=== PATIENT | female | born 1985 | race Caucasian/White ===

== ENCOUNTER → 2021-07-03 | Outpatient (CLI) | payer OTHER | LOC: ZCOL.LAB 13:24 | DX: R19.5 Other fecal abnormalities (principal) ==

== ENCOUNTER → 2021-11-13 | Outpatient (CLI) | payer OTHER | LOC: COL.LAB 11:06 | DX: Z01.89 Encounter for other specified special examinations (principal) ==

== ENCOUNTER → 2023-11-26 | Outpatient (CLI) | payer BC | LOC: MC.RAD 14:41 | DX: Z12.31 Encounter for screening mammogram for malignant neoplasm of breast (principal) ==